=== PATIENT | female | born 1960 | race Caucasian/White ===

== ENCOUNTER 2017-01-11 14:11 | Emergency (ER) | payer OTHER ==
[~2017-01-11 14:11] MED LIST: ALPRAZOLAM PO; PAXIL CR PO; PRO AIR; SINGULAIR PO
== END 2017-01-11 14:45 | disposition home or self-care (01) ==
LOC: SED 14:11
DX: H10.9 Unspecified conjunctivitis (principal); J44.9 Chronic obstructive pulmonary disease, unspecified; F17.210 Nicotine dependence, cigarettes, uncomplicated; Z79.899 Other long term (current) drug therapy; Z88.8 Allergy status to other drugs, medicaments and biological substances
CPT/HCPCS: 99282